=== PATIENT | female | born 1970 | race Hispanic/Latino ===

== ENCOUNTER 2018-02-07 13:34 | Emergency (ER) | payer BC ==
[2018-02-07 13:54] VITALS: BP 104/57; PULSE 66; RESP 15; TEMP 98.9; O2SAT 99
[2018-02-07] MEDS ORDERED: levETIRAcetam 500 MG in Sodium Chloride 0.9% 100 ML IVPB STA (14:40)
[2018-02-07 14:50] LABS: BASO # 0.1 K/uL (0.0-0.2); BASO % 0.7 % (0.0-2.0); EOS % 0.4 % (0.0-4.0); HEMOGLOBIN 13.3 g/dL (11.0-16.0); LYMPH # 1.3 K/uL (1.0-4.3); LYMPH % 14.6 % (20.0-40.0); MEAN CELL VOLUME 88.6 fL (81.0-99.0); MEAN CORPUSCULAR HEMOGLOBIN 29.5 pg (27.0-31.0); MEAN CORPUSCULAR HGB CONC 33.3 g/dL (33.0-37.0); MEAN PLATELET VOLUME 10.4 fL (7.2-11.7); MONO # 0.6 K/uL (0.0-0.8); MONO % 6.4 % (0.0-10.0); NEUT # 6.7 K/uL (1.8-7.0); NEUT % 77.9 % (50.0-75.0); RBC 4.51 Mil/uL (3.80-5.20); RED CELL DISTRIBUTION WIDTH 13.9 % (11.5-14.5); WHITE BLOOD COUNT 8.6 K/uL (4.8-10.8)
[2018-02-07 15:02] LABS: ALB/GLOB RATIO 1.5 (1.0-2.1); ALBUMIN 4.4 g/dL (3.5-5.0); ALT/SGPT 23 U/L (9-52); AST/SGOT 23 U/L (14-36); BLOOD UREA NITROGEN 17 mg/dL (7-17); GFR NON-AFRICAN AMERICAN > 60
[2018-02-07] MEDS ORDERED: Potassium Chloride 20 mEq ER Tab PO STA (15:04)
[2018-02-07] MEDS ORDERED: Potassium Chloride 20 mEq ER Tab PO ONE (16:02)
--- NOTE | 2018-02-07 16:11 | C.PDOC ---
History Of Present Illness 47 y/o female, w/PMhx of migraine headaches and seizure disorder, brought to ER by ambulance, for evaluation of seizures which occurred today. Patient states that she had a headache at work, then she started having several focal seizures. Her last seizure was in 2013. Patient reports that she is compliant with her medications and her seizure activity is well controlled. EMS was called, EMS started patient on Ativan IV on route to ER. Currently, patient is awake,alert, and she is able to provide full past medical history. Time Seen by Provider: 02/07/18 14:32 Chief Complaint (Nursing): Seizure History Per: Patient History/Exam Limitations: no limitations Number Of Seizures: Multiple Severity: Moderate Past Medical History Vital Signs: Last Vital Signs Temp 98.9 F 02/07/18 13:53 Pulse 66 02/07/18 13:53 Resp 15 02/07/18 13:53 BP 104/57 L 02/07/18 13:53 Pulse Ox 99 02/07/18 13:53 - Medical History PMH: Migraine, Seizures Surgical History: No Surg Hx - [facility] Procedures CONTINUOUS INVASIVE MECHANICAL VENTILATION <96 CONSEC HRS (06/29/13) INSERT ENDOTRACHEAL TUBE (06/29/13) Family History: States: No Known Family Hx - Social History Hx Alcohol Use: No Hx Substance Use: No - Immunization History Hx Tetanus Toxoid Vaccination: No Hx Influenza Vaccination: No Hx Pneumococcal Vaccination: No Review Of Systems Except As Marked, All Systems Reviewed And Found Negative. Constitutional: Negative for: Fever, Chills Gastrointestinal: Negative for: Nausea, Vomiting Neurological: Positive for: Seizures (currently resolved), Headache Physical Exam - Physical Exam Appears: Non-toxic, No Acute Distress Skin: Normal Color, Warm, Dry Head: Normacephalic Eye(s): bilateral: Normal Inspection, PERRL, EOMI Nose: Normal Oral Mucosa: Moist Neck: Supple Chest: Symmetrical Cardiovascular: Rhythm Regular Respiratory: Normal Breath Sounds, No Rales, No Rhonchi, No Wheezing Gastrointestinal/Abdominal: Normal Exam, Soft, No Tenderness, No Guarding, No Rebound Extremity: Normal ROM, No Tenderness, No Swelling Neurological/Psych: Oriented x3, Normal Speech, Other (spastic twitching to left side of face, mild weakness in left wrist extension, mild peripheral weakness in left leg, no pronator drift) ED Course And Treatment - Laboratory Results Result Diagrams: 02/07/18 14:46 02/07/18 14:46 Lab Interpretation: No Acute Changes O2 Sat by Pulse Oximetry: 99 (RA) Pulse Ox Interpretation: Normal Progress Note: Patient treated with Keppra 500mg IV in ED. She is refusing CT scan and states that she feels better and wants to leave. No longer is twitching and weakness is resolved. She will follow up with DR Al tomorrow. Medical Decision Making Medical Decision Making: Plan: --Labs --UA --HCG Qual. --CT-Head --IV Fluids --Potassium Chlorid PO Disposition - Disposition Disposition: AGAINST MEDICAL ADVICE Disposition Time: 17:30 Condition: IMPROVED Forms: [facility] (Sami) - Clinical Impression Clinical Impression: Seizure, Migraine headache - Scribe Statement The provider has reviewed the documentation as recorded by the Mehranibe Stephen Downing Provider Attestation: All medical record entries made by the Scribe were at my direction and personally dictated by me. I have reviewed the chart and agree that the record accurately reflects my personal performance of the history, physical exam, medical decision making, and the department course for this patient. I have also personally directed, reviewed, and agree with the discharge instructions and disposition.
== END 2018-02-07 16:33 | disposition left against medical advice (07) ==
LOC: C.ER 13:34
DX: G40.909 Epilepsy, unspecified, not intractable, without status epilepticus (principal); G43.909 Migraine, unspecified, not intractable, without status migrainosus
CPT/HCPCS: 80053; 82948; 85025; 96365; 99285; J1953